=== PATIENT | female | born 1990 ===

== ENCOUNTER 2023-02-24 08:16 | Outpatient (CLI) | payer OTHER, SELFPAY ==
--- NOTE | 2023-03-16 17:49 | WPDSLEEPSTUD ---
Sleep Study Date of Study: 02/24/23 Ordering Provider: Anthony Olivier MD Interpreting Physician: Brittni Arias DO Sleep Study Type: Split Polysomnogram Height: 1.6 m Weight: 110.223 kg Body Mass Index: 43.0 Neck Circumference (inches): 15.5 [place]: 17 Reason for Sleep Study Patient wakes up during the night feeling like she can?t catch her breath and feels tired during the day. Sleep History She frequently awakens from sleep short of breath. She frequently awakens at night with heartburn, belching or cough.? She frequently snores and frequently snores loudly enough that others complain. She frequently has trouble sleeping when she has a cold. She frequently suddenly wakes up gasping for breath during the night. She frequently has breathing problems at night. She constantly sweats excessively at night. She rarely notices her heart pounding or beating irregularly during the night. She constantly falls asleep during the day and constantly falls asleep involuntarily. She rarely falls asleep while driving. She never experiences loss of muscle tone with strong emotion. She frequently has trouble at work because of sleepiness. She never feels paralyzed on waking or falling asleep. She occasionally experiences vivid dreams upon waking or falling asleep. She does not feel afraid of going to sleep. She frequently has nightmares. She occasionally recalls her dreams. She constantly has thoughts racing through her mind. She occasionally feels sad or depressed. She frequently feels anxiety or worry about things. She does not notice parts of her body jerk. She rarely kicks during the night. She never feels crawling or aching feelings in her legs. She never feels leg pain at night. She occasionally grinds her teeth during sleep but rarely has morning jaw pain. She occasionally feels bothered by pain during the day and is rarely awakened by pain during the night. She occasionally? wakes up feeling stiff, sore, and achy in the morning with pain in her neck, spine, or joints.? Normal bedtime is around 11 on the weekdays and same on the weekends, taking between 30 minutes to 1 hour to fall asleep. She typically gets about 4 to 5 hours of sleep per night. Her wake up time is around 6:30 am on the weekdays and 8 am on the weekends. She typically wakes up around 5 times per night, awake 15 to 30 minutes. She reads or watches TV before falling asleep. She takes naps during the afternoon or evening. Habits:? Current tobacco smoker, 1ppd. Caffeine use is 2 sodas per day. No alcohol or recreational substances. [facility] Family History Family History Father No problems noted. Mother Diabetes mellitus Sibling No problems noted. Sibling No problems noted. Son No problems noted. Daughter No problems noted. Social History Social History Smoking status: Current every day smoker Alcohol intake: never Substance use: never Current Housing: I Have Housing Medications Home Medications Medication Instructions Recorded Confirmed Type alprazolam 0.5 mg tablet 0.5 mg PO TID 02/18/23 History aripiprazole 10 mg tablet 10 mg PO DAILY 02/18/23 History gabapentin 400 mg capsule 400 mg PO QID 02/18/23 History mirtazapine 15 mg tablet 7.5 mg PO DAILY 02/18/23 History omeprazole magnesium 20 mg 20 mg PO TID 02/18/23 History tablet,delayed release propranolol 40 mg tablet 40 mg PO BID 02/18/23 History sertraline 100 mg tablet 100 mg PO DAILY 02/18/23 History sumatriptan succinate 50 mg tablet 50 mg PO BID 02/18/23 History tizanidine 4 mg tablet 4 mg PO QHS PRN 02/18/23 History lisdexamfetamine 60 mg capsule 70 mg PO DAILY 02/19/23 History ([place]) Sleep Procedure This test was performed using the [employer] multiple channel system including EOG, EEG, submental EMG, EKG, nasal and oral airfl
[2023-03-16 17:55] VITALS: BMI 43.0
--- NOTE | 2023-10-10 11:39 | SLEEP ---
new calls [id number]
== END 2023-02-25 07:01 | disposition home or self-care (01) ==
LOC: ANHCSM 08:22
PROVIDERS: Visit Provider Internal Medicine Pulmonary Disease
DX: G47.33 Obstructive sleep apnea (adult) (pediatric) (principal); G47.31 Primary central sleep apnea
CPT/HCPCS: 95811

== ENCOUNTER 2023-05-14 08:34 | Outpatient (CLI) | payer OTHER, SELFPAY ==
--- NOTE | 2023-06-04 19:48 | WPDSLEEPSTUD ---
Sleep Study Date of Study: 05/14/23 Ordering Provider: Anthony Olivier MD Interpreting Physician: Penny Peterson MD Sleep Study Type: CPAP Titration Height: 1.57 m Weight: 110.223 kg Body Mass Index: 44.4 Neck Circumference (inches): 15.5 [place]: 18 Reason for Sleep Study * February 24, 2023; split night study; severe central sleep apnea; overall AHI 48.3, central AHI 33.9. The titration did not demonstrate an adequate pressure. She returns for CPAP titration/BiPAP titration. Sleep History Ana Michaels is a 32-year-old female who frequently awakens from sleep short of breath. She frequently awakens at night with heartburn, belching or coughing. She frequently snores, and this is usually loud enough that others complain. She frequently has trouble sleeping when she has a cold. She frequently wakes at night gasping for breath. She frequently has breathing problems at night. She constantly sweats excessively at night. She rarely notices her heart pounding or beating irregularly during the night. She constantly falls asleep during the day and constantly falls asleep involuntarily. She rarely falls asleep while driving. She never experiences loss of muscle tone with strong emotion. She frequently has trouble at work because of sleepiness. She never feels paralyzed on waking or falling asleep. She occasionally experiences vivid dreams upon waking or falling asleep. She does not feel afraid of going to sleep. She frequently has nightmares. She occasionally recalls her dreams. She constantly has thoughts racing through her mind. She occasionally feels sad or depressed. She frequently feels anxiety or worry about things. She does not notice parts of her body jerk. She rarely kicks during the night. She never feels crawling or aching feelings in her legs. She never feels leg pain at night. She occasionally grinds her teeth during sleep but rarely has morning jaw pain. She occasionally feels bothered by pain during the day and is rarely awakened by pain during the night. She occasionally wakes up feeling stiff, sore, and achy in the morning with pain in her neck, spine, or joints. Normal bedtime is around 11:00 p.m. taking between 30 minutes to 1 hour to fall asleep. She typically gets about 4 to 5 hours of sleep per night. Her wake up time is around 6:30 am on the weekdays. ON weekends, she wakes at 8:00 a.m. She typically wakes up around 5 times per night, stays awake 15 to 30 minutes. She takes naps during the afternoon or evening. Habits: Current tobacco smoker, 1ppd. Caffeine use is 2 sodas per day. No alcohol or recreational substances. [facility] Past Medical History Medical History (Updated 06/04/23 @ 20:01 by Penny Peterson MD) Anxiety Central sleep apnea Depression Low back pain, unspecified Nicotine dependence, unspecified, uncomplicated PTSD (post-traumatic stress disorder) Family History Family History Father No problems noted. Mother Diabetes mellitus Sibling No problems noted. Sibling No problems noted. Son No problems noted. Daughter No problems noted. Social History Social History Smoking status: Current every day smoker Alcohol intake: never Substance use: never Current Housing: I Have Housing Medications Home Medications Medication Instructions Recorded Confirmed Type alprazolam 0.5 mg tablet 0.5 mg PO TID 02/18/23 History aripiprazole 10 mg tablet 10 mg PO DAILY 02/18/23 History gabapentin 400 mg capsule 400 mg PO QID 02/18/23 History mirtazapine 15 mg tablet 7.5 mg PO DAILY 02/18/23 History omeprazole magnesium 20 mg 20 mg PO TID 02/18/23 History tablet,delayed release propranolol 40 mg tablet 40 mg PO BID 02/18/23 History sertraline 100 mg tablet 100 mg PO DAILY 02/18/23 History sumatriptan succinate 50 mg tablet 50 mg PO BID 02/18/23
[2023-06-04 20:58] VITALS: BMI 44.4
== END 2023-05-15 06:35 | disposition home or self-care (01) ==
LOC: ANHCSM 08:34
PROVIDERS: Visit Provider Internal Medicine Pulmonary Disease
DX: G47.33 Obstructive sleep apnea (adult) (pediatric) (principal); G47.31 Primary central sleep apnea
CPT/HCPCS: 95811